=== PATIENT | male | born 1950 | race Hispanic/Latino ===

== ENCOUNTER 2018-03-13 12:33 | Emergency (ER) | payer OTHER ==
[2018-03-13] MEDS ORDERED: predniSONE 20 MG TAB ONE (13:44)
[2018-03-13] MEDS ORDERED: ALBUTEROL 2.5 MG/3 ML NEB SOL ONE (13:44)
--- NOTE | 2018-03-13 13:55 | RAD REPORT ---
EXAM DESCRIPTION: RAD - Chest Pa And Lat (2 Views) - 03/13/2018 1:48 pm CLINICAL HISTORY: Cough;Dyspnea Chest pain. COMPARISON: No comparisons FINDINGS: The lungs are emphysematous but clear. The heart is upper limit of normal in size. No disp laced fractures. Lumbar hardware is present at the thoracolumbar junction. IMPRESSION: Mild COPD.
[2018-03-13] MEDS ORDERED: IPRATROPIUM BROM 0.5MG/2.5ML ONE (15:33)
--- NOTE | 2018-03-13 16:04 | ER ---
Nurse's Notes [facility] Name: Sebastian Alford Age: 67 yrs Sex: Male : 1950 Arrival Date: 03/13/2018 Time: 12:40 Bed 23 Private MD: out of town, doctor Diagnosis: Acute bronchitis Presentation: 03/13 12:49 Presenting complaint: Patient states: i have a cough since Saturday, hard to lay down and hj sleep; reports productive cough; denies fever; took Nyquil and excedrin today;. Transition of care: patient was not received from another setting of care. Onset of symptoms was March 13, 2018. Risk Assessment: Do you want to hurt yourself or someone else? Patient reports no desire to harm self or others. Initial Sepsis Screen: Does the patient meet any 2 criteria? No. Patient's initial sepsis screen is negative. Does the patient have a suspected source of infection? No. Patient's initial sepsis screen is negative. Care prior to arrival: None. 12:49 Method Of Arrival: Ambulatory 12:49 Acuity: HERBERT 4 hj Triage Assessment: 12:54 General: Appears in no apparent distress. uncomfortable, Behavior is calm, cooperative, hj appropriate for age. Pain: Denies pain. Historical: - Allergies: 12:54 No Known Allergies; hj - Home Meds: 12:54 Avodart 0.5 mg oral cap 1 cap once daily [Active]; doxazosin 8 mg oral tab 1 tab once hj daily [Active]; atorvastatin 40 mg oral tab 1 tab once daily [Active]; potassium chloride 20 mEq Oral TbTQ 1 tab once daily [Active]; furosemide 40 mg Oral tab 1 tab 2 times per day [Active]; Benicar 40 mg oral tab 1 tab once daily [Active]; aspirin 81 mg Oral chew 1 tab once daily [Active]; Centrum Silver 400-250 mcg oral chew [Active]; - PMHx: 12:54 Hypertension; Hyperlipidemia; hj - PSHx: 12:54 hip surgery; back; Hernia repair; Cholecystectomy; hj - Immunization history:: Adult Immunizations up to date. - Social history:: Smoking status: Patient/guardian denies using tobacco, Patient/guardian denies using alcohol. - Ebola Screening: : Patient negative for fever greater than or equal to 101.5 degrees Fahrenheit, and additional compatible Ebola Virus Disease symptoms Patient denies exposure to infectious person Patient denies travel to an Ebola-affected area in the 21 days before illness onset. Screenin:54 Abuse screen: Denies threats or abuse. Denies injuries from another. Nutritional hj screening: No deficits noted. Tuberculosis screening: No symptoms or risk factors identified. Fall Risk None identified. Assessment: 13:20 General: Appears distressed, uncomfortable, well groomed, well developed, well tl3 nourished, Behavior is calm, cooperative, appropriate for age. Pain: Denies pain. Neuro: Level of Consciousness is awake, alert, obeys commands, Oriented to person, place, time, situation, Appropriate for age. Cardiovascular: Heart tones S1 S2 present Patient's skin is warm and dry. Respiratory: Airway is patent Respiratory effort is labored, shallow, Respiratory pattern is symmetrical, Breath sounds are diminished bilaterally. GI: No deficits noted. No signs and/or symptoms were reported involving the gastrointestinal system. : No deficits noted. No signs and/or symptoms were reported regarding the genitourinary system. EENT: No deficits noted. No signs and/or symptoms were reported regarding the EENT system. Derm: No deficits noted. No signs and/or symptoms reported regarding the dermatologic system. Musculoskeletal: No deficits noted. No signs and/or symptoms reported regarding the musculoskeletal system. 14:25 Reassessment: pt S/S much improved after first neb. tl3 15:50 Reassessment: Patient and/or family updated on plan of care and expected duration. Pain tl3 level reassessed. Patient is alert, oriented x 3, equal unlabored respirations, skin warm/dry/pink. pt S/S improved, coughing reduced and breathing much easier. Vital Signs: 12:55 BP 136 / 90; Pulse 87; Resp 18; Temp 97.8(TE); Pulse Ox 98% on R/A; Weight 111.13 kg; hj Height 5 ft. 6 in. (167.64 cm); Pain 0/10; 14:24 BP 146 / 80; Pulse 82; Resp 18; Pulse Ox 94% on R/A; tl3 15:50 BP 129 / 78; Pulse 87; Resp 18; Pulse Ox 97% ; tl3 12:55 Body Mass Index 39.54 (111.13 kg, 167.64 cm) hj ED Course: 12:40 Patient arrived in ED. mr 12:40 out of town, doctor is Private Physician. mr 12:51 Triage completed. hj 12:54 Arm band placed on left wrist. hj 12:54 Patient has correct armband on for positive identification. Placed in gown. Bed in low hj position. Call light in reach. Side rails up X 1. 13:06 Suze Patel, RN is Primary Nurse. tl3 13:07 Ramos Hough PA is PHCP. jr8 13:07 Dano Zelaya MD is Attending Physician. jr8 13:48 XRAY Chest Pa And Lat (2 Views) In Process Unspecified. EDMS 14:24 No provider procedures requiring assistance completed. Patient did not have IV access tl3 during this emergency room visit. Administered Medications: 13:52 Drug: Albuterol 2.5 mg Route: Inhalation; tl3 14:05 Drug: predniSONE 60 mg Route: PO; tl3 14:21 Follow up: Response: No adverse reaction tl3 15:57 Follow up: Response: No adverse reaction tl3 14:20 Drug: Albuterol 2.5 mg Route: Inhalation; tl3 15:15 Drug: Albuterol 2.5 mg Route: Inhalation; tl3 15:58 Follow up: Response: Marked relief of symptoms tl3 15:15 Drug: AtroVENT Aerosol 0.5 mg Route: Inhalation; tl3 15:57 Follow up: Response: No adverse reaction; Marked relief of symptoms tl3 Outcome: 16:04 Discharge ordered by . jr8 16:30 Discharged to home ambulatory. tl3 16:30 Condition: improved 16:30 Discharge instructions given to patient, Instructed on discharge instructions, follow up and referral plans. medication usage, instructed pt on proper inhaler use, stressed follow up with PCP 16:32 Patient left the ED. tl3 Signatures: Dispatcher [employer] EDAL Margaret Machado mr Ramos Hough PA PA jr8 Rishi Lovelace RN RN Suze Patel RN RN tl3
--- NOTE | 2018-03-13 16:05 | EDPHYS ---
Physician Documentation [facility] Name: Sebastian Alford Age: 67 yrs Sex: Male : 1950 Arrival Date: 03/13/2018 Time: 12:40 Bed 23 Private MD: out of town, doctor ED Physician Dano Zelaya HPI: 03/13 14:04 This 67 yrs old Male presents to ER via Ambulatory with complaints of Cough. jr8 14:04 The patient or guardian reports cough, that is intermittent, described as moderate, jr8 with productive sputum, that is green, difficulty breathing. Onset: The symptoms/episode began/occurred gradually, 4 day(s) ago. Severity of symptoms: At their worst the symptoms were moderate, in the emergency department the symptoms are unchanged. Modifying factors: The symptoms are alleviated by nothing, the symptoms are aggravated by nothing. Associated signs and symptoms: The patient has no apparent associated signs or symptoms. The patient has not experienced similar symptoms in the past. The patient has not recently seen a physician. Historical: - Allergies: 12:54 No Known Allergies; hj - Home Meds: 12:54 Avodart 0.5 mg oral cap 1 cap once daily [Active]; doxazosin 8 mg oral tab 1 tab once hj daily [Active]; atorvastatin 40 mg oral tab 1 tab once daily [Active]; potassium chloride 20 mEq Oral TbTQ 1 tab once daily [Active]; furosemide 40 mg Oral tab 1 tab 2 times per day [Active]; Benicar 40 mg oral tab 1 tab once daily [Active]; aspirin 81 mg Oral chew 1 tab once daily [Active]; Centrum Silver 400-250 mcg oral chew [Active]; - PMHx: 12:54 Hypertension; Hyperlipidemia; hj - PSHx: 12:54 hip surgery; back; Hernia repair; Cholecystectomy; hj - Immunization history:: Adult Immunizations up to date. - Social history:: Smoking status: Patient/guardian denies using tobacco, Patient/guardian denies using alcohol. - Ebola Screening: : Patient negative for fever greater than or equal to 101.5 degrees Fahrenheit, and additional compatible Ebola Virus Disease symptoms Patient denies exposure to infectious person Patient denies travel to an Ebola-affected area in the 21 days before illness onset. ROS: 14:04 Eyes: Negative for injury, pain, redness, and discharge, ENT: Negative for injury, jr8 pain, and discharge, Neck: Negative for injury, pain, and swelling, Cardiovascular: Negative for chest pain, palpitations, and edema, Abdomen/GI: Negative for abdominal pain, nausea, vomiting, diarrhea, and constipation, Back: Negative for injury and pain, MS/Extremity: Negative for injury and deformity, Skin: Negative for injury, rash, and discoloration, Neuro: Negative for headache, weakness, numbness, tingling, and seizure. 14:04 Respiratory: Positive for cough, shortness of breath, wheezing. Exam: 14:04 Eyes: Pupils equal round and reactive to light, extra-ocular motions intact. Lids and jr8 lashes normal. Conjunctiva and sclera are non-icteric and not injected. Cornea within normal limits. Periorbital areas with no swelling, redness, or edema. ENT: Nares patent. No nasal discharge, no septal abnormalities noted. Tympanic membranes are normal and external auditory canals are clear. Oropharynx with no redness, swelling, or masses, exudates, or evidence of obstruction, uvula midline. Mucous membranes moist. Neck: Trachea midline, no thyromegaly or masses palpated, and no cervical lymphadenopathy. Supple, full range of motion without nuchal rigidity, or vertebral point tenderness. No Meningismus. Cardiovascular: Regular rate and rhythm with a normal S1 and S2. No gallops, murmurs, or rubs. Normal PMI, no JVD. No pulse deficits. Abdomen/GI: Soft, non-tender, with normal bowel sounds. No distension or tympany. No guarding or rebound. No evidence of tenderness throughout. Back: No spinal tenderness. No costovertebral tenderness. Full range of motion. Skin: Warm, dry with normal turgor. Normal color with no rashes, no lesions, and no evidence of cellulitis. MS/ Extremity: Pulses equal, no cyanosis. Neurovascular intact. Full, normal range of motion. Neuro: Awake and alert, GCS 15, oriented to person, place, time, and situation. Cranial nerves II-XII grossly intact. Motor strength 5/5 in all extremities. Sensory grossly intact. Cerebellar exam normal. Normal gait. 14:04 Respiratory: the patient does not display signs of respiratory distress, Respirations: normal, symetrical, no use of accessory muscles, no grunting, no evidence of nasal flaring, no prolonged exhalations, no pursed lip breathing, no retractions, no shallow respirations, no splinting, no tachypnea, Breath sounds: wheezing: expiratory that is mild, is heard diffusely. Vital Signs: 12:55 BP 136 / 90; Pulse 87; Resp 18; Temp 97.8(TE); Pulse Ox 98% on R/A; Weight 111.13 kg; hj Height 5 ft. 6 in. (167.64 cm); Pain 0/10; 14:24 BP 146 / 80; Pulse 82; Resp 18; Pulse Ox 94% on R/A; tl3 15:50 BP 129 / 78; Pulse 87; Resp 18; Pulse Ox 97% ; tl3 12:55 Body Mass Index 39.54 (111.13 kg, 167.64 cm) hj MDM: 13:07 Patient medically screened. jr8 14:04 Data reviewed: vital signs, nurses notes, radiologic studies, plain films. Data jr8 interpreted: Pulse oximetry: on room air is 98 %. Interpretation: normal. Counseling: I had a detailed discussion with the patient and/or guardian regarding: the historical points, exam findings, and any diagnostic results supporting the discharge/admit diagnosis, radiology results, the need for outpatient follow up, a family practitioner, to return to the emergency department if symptoms worsen or persist or if there are any questions or concerns that arise at home. Response to treatment: the patient's symptoms have markedly improved after treatment. 03/13 13:24 Order name: XRAY Chest Pa And Lat (2 Views); Complete Time: 14:01 jr8 Administered Medications: 13:52 Drug: Albuterol 2.5 mg Route: Inhalation; tl3 14:05 Drug: predniSONE 60 mg Route: PO; tl3 14:21 Follow up: Response: No adverse reaction tl3 15:57 Follow up: Response: No adverse reaction tl3 14:20 Drug: Albuterol 2.5 mg Route: Inhalation; tl3 15:15 Drug: Albuterol 2.5 mg Route: Inhalation; tl3 15:58 Follow up: Response: Marked relief of symptoms tl3 15:15 Drug: AtroVENT Aerosol 0.5 mg Route: Inhalation; tl3 15:57 Follow up: Response: No adverse reaction; Marked relief of symptoms tl3 Disposition: 18:39 Co-signature as Attending Physician, Dano Zelaya MD I agree with the assessment and kdr plan of care. Disposition: 03/13/18 16:04 Discharged to Home. Impression: Acute bronchitis. - Condition is Stable. - Discharge Instructions: Acute Bronchitis, Adult. - Prescriptions for Prednisone 20 mg Oral Tablet - take 3 tablet by ORAL route once daily for 5 days; 15 tablet. Albuterol Sulfate 90 mcg/actuation Inhalation - inhale 2 puff by INHALATION route every 4 hours; 1 Inhaler. Guaifenesin AC 10- 100 mg/5 mL Oral Liquid - take 10 milliliter by ORAL route every 4 hours As needed; 240 milliliter. - Medication Reconciliation Form, Thank You Letter, Antibiotic Education, Prescription Opioid Use form. - Follow up: Private Physician; When: 2 - 3 days; Reason: Recheck today's complaints, Continuance of care, Re-evaluation by your physician. - Problem is new. - Symptoms have improved. Signatures: Dispatcher [employer] EDMS Dano Zelaya MD MD [facility] Ramos Hough PA PA jr8 Rishi Lovelace RN RN Suze Patel RN RN tl3 Corrections: (The following items were deleted from the chart) 16:32 16:04 03/13/2018 16:04 Discharged to Home. Impression: Acute bronchitis. Condition is tl3 Stable. Forms are Medication Reconciliation Form, Thank You Letter, Antibiotic Education, Prescription Opioid Use. Follow up: Private Physician; When: 2 - 3 days; Reason: Recheck today's complaints, Continuance of care, Re-evaluation by your physician. Problem is new. Symptoms have improved. jr8
== END 2018-03-13 16:32 | disposition home or self-care (01) ==
LOC: ER 12:33
DX: J20.9 Acute bronchitis, unspecified (principal); I10 Essential (primary) hypertension; E78.5 Hyperlipidemia, unspecified; Z79.82 Long term (current) use of aspirin
CPT/HCPCS: 71046; 99284; J7512

== ENCOUNTER 2018-03-21 19:16 | Inpatient (IN) | payer OTHER ==
[2018-03-21] MEDS ORDERED: IPRATROPIUM BROM 0.5MG/2.5ML ONE (19:48)
[2018-03-21] MEDS ORDERED: ALBUTEROL 2.5 MG/3 ML NEB SOL ONE (19:48)
--- NOTE | 2018-03-21 20:12 | RAD REPORT ---
EXAM DESCRIPTION: RAD - Chest Single View - 03/21/2018 8:05 pm CLINICAL HISTORY: DYSPNEA Chest pain. COMPARISON: Chest Pa And Lat (2 Views) dated 03/13/2018 FINDINGS: Portable technique limits examination quality. Mild interstitial pulmonary edema is seen. The heart is mildly prominent. No displaced fractures. IMPRESSION: Mild CHF versus volume overload pattern.
[2018-03-21] MEDS ORDERED: AZITHROMYCIN 500 MG/250 ML BAG ONE (20:27)
[2018-03-21] MEDS ORDERED: NA CHLORIDE 0.9% 1,000 ML ONE (20:27)
[2018-03-21] MEDS ORDERED: METHYLPREDNISOLONE 125 MG INJ ONE (20:27)
[2018-03-21] MEDS ORDERED: CEFTRIAXONE 1000 MG/VIAL ONE (20:27)
[2018-03-21] MEDS ORDERED: NA CHLORIDE 0.9% 100 ML IV ONE (20:28)
[2018-03-21 21:30] LABS: Absolute Lymphocytes (CBC) 0.6 K/uL (0.7-4.9); Absolute Monocytes 0.5 K/uL (0.1-1.3); Basophils % 0.2 % (0-1.3); Eosinophils % 2.7 % (0-4.4); Hematocrit 39.5 % (39.6-49.0); Lymphocytes % 8.6 % (15.3-44.8); MPV 8.5 fL (7.6-11.3); Monocytes % 6.5 % (3.3-12.3); RBC Red Blood Cell Count 4.22 M/uL (4.33-5.43)
[2018-03-21 21:31] LABS: Protime INR 1.05
--- NOTE | 2018-03-21 21:39 | ER ---
Nurse's Notes [facility] Name: Sebastian Alford Age: 67 yrs Sex: Male : 1950 Arrival Date: 03/21/2018 Time: 19:20 Bed 24 Private MD: Diagnosis: Dyspnea;Cardiomegaly;Unspecified combined systolic (congestive) and diastolic (congestive) heart failure;Obesity, unspecified;Essential (primary) hypertension;Cough;Acute upper respiratory infection, unspecified Presentation: 03/21 19:28 Presenting complaint: Patient states: I have been having a cough and SOB for the last 2 la1 weeks, I was here a week ago and put on steroids and breathing treatments but I am just getting worse. Transition of care: patient was not received from another setting of care. Onset of symptoms was March 21, 2018. Risk Assessment: Do you want to hurt yourself or someone else? Patient reports no desire to harm self or others. Initial Sepsis Screen: Does the patient meet any 2 criteria? No. Patient's initial sepsis screen is negative. Does the patient have a suspected source of infection? No. Patient's initial sepsis screen is negative. Care prior to arrival: None. 19:28 Method Of Arrival: Ambulatory la1 19:28 Acuity: HERBERT 3 la1 Triage Assessment: 22:59 Respiratory: Reports Onset: The symptoms/episode began/occurred the last week, the tl3 patient has severe shortness of breath. Historical: - Allergies: 19:30 No Known Allergies; la1 - Home Meds: 19:30 aspirin 81 mg Oral chew 1 tab once daily [Active]; atorvastatin 40 mg Oral tab 1 tab la1 once daily [Active]; Avodart 0.5 mg Oral cap 1 cap once daily [Active]; Benicar 40 mg Oral tab 1 tab once daily [Active]; Centrum Silver 400-250 mcg Oral chew [Active]; doxazosin 8 mg Oral tab 1 tab once daily [Active]; furosemide 40 mg Oral tab 1 tab 2 times per day [Active]; potassium chloride 10 mEq oral TbTQ [Active]; 19:34 Avodart 0.5 mg oral cap 1 cap once daily [Active]; tl3 - PMHx: 19:30 Hyperlipidemia; Hypertension; la1 - PSHx: 19:34 hip surgery; Hernia repair; Cholecystectomy; tl3 - Immunization history:: Adult Immunizations up to date, Adult Immunizations unknown. - Social history:: Smoking status: Patient/guardian denies using tobacco, Smoking status: unknown. - Ebola Screening: : No symptoms or risks identified at this time. - Family history:: not pertinent. Screenin:36 Abuse screen: Denies threats or abuse. Nutritional screening: No deficits noted. tl3 Tuberculosis screening: No symptoms or risk factors identified. Fall Risk None identified. Assessment: 19:30 General: Appears distressed, uncomfortable, well groomed, well developed, well tl3 nourished, Behavior is calm, cooperative, appropriate for age. General: pt was seen here a few days ago and s/s are getting worse. Pain: Complains of pain in sore throat with cough. Neuro: Level of Consciousness is awake, alert, obeys commands, Oriented to person, place, time, situation, Appropriate for age. Cardiovascular: Heart tones S1 S2 present Patient's skin is warm and dry. Rhythm is regular. Respiratory: Airway is patent Respiratory effort is even, unlabored, Respiratory pattern is regular, symmetrical, Breath sounds with crackles bilaterally. in left lower lobe, right lower lobe, left posterior lower lobe and right posterior lower lobe Breath sounds with rhonchi bilaterally. in left lower lobe, right lower lobe, left posterior lower lobe and right posterior lower lobe. GI: No deficits noted. No signs and/or symptoms were reported involving the gastrointestinal system. : No deficits noted. No signs and/or symptoms were reported regarding the genitourinary system. EENT: No deficits noted. No signs and/or symptoms were reported regarding the EENT system. Derm: No deficits noted. No signs and/or symptoms reported regarding the dermatologic system. Musculoskeletal: No deficits noted. No signs and/or symptoms reported regarding the musculoskeletal system. 20:45 Reassessment: No changes from previously documented assessment. Patient and/or family tl3 updated on plan of care and expected duration. Pain level reassessed. Patient is alert, oriented x 3, equal unlabored respirations, skin warm/dry/pink. 22:00 Reassessment: Patient appears in no apparent distress at this time. No changes from tl3 previously documented assessment. Patient and/or family updated on plan of care and expected duration. Pain level reassessed. Patient is alert, oriented x 3, equal unlabored respirations, skin warm/dry/pink. 23:06 Reassessment: Patient appears in no apparent distress at this time. No changes from tl3 previously documented assessment. Patient and/or family updated on plan of care and expected duration. Pain level reassessed. Patient is alert, oriented x 3, equal unlabored respirations, skin warm/dry/pink. Vital Signs: 19:30 Pulse 95; Resp 26; Temp 98.1(O); Pulse Ox 94% on R/A; Weight 111.13 kg; Height 5 ft. 6 la1 in. (167.64 cm); 19:34 BP 180 / 80; Pulse 96; Resp 26; Pulse Ox 97% on R/A; tl3 20:45 BP 130 / 83; Pulse 84; Resp 18; Pulse Ox 99% on R/A; tl3 23:06 BP 159 / 95; Pulse 89; Resp 18; Pulse Ox 98% on R/A; tl3 19:30 Body Mass Index 39.54 (111.13 kg, 167.64 cm) la1 ED Course: 19:20 Patient arrived in ED. am2 19:29 Triage completed. la1 19:30 Suze Patel, RN is Primary Nurse. tl3 19:30 Catracho Harley MD is Attending Physician. christina 19:31 Arm band placed on left wrist. la1 19:36 Patient has correct armband on for positive identification. Bed in low position. Call tl3 light in reach. Side rails up X 1. Adult w/ patient. monitor and storage bin tender on. Pulse ox on. NIBP on. 19:36 No provider procedures requiring assistance completed. tl3 20:03 Chest Single View XRAY In Process Unspecified. EDMS 21:15 Inserted saline lock: 20 gauge in right hand, using aseptic technique. tl3 21:37 Janneth Block MD is Hospitalizing Provider. christina 23:49 Patient admitted, IV remains in place. tl3 Administered Medications: 19:46 Drug: Albuterol - atroVENT (3:1) (2.5 mg - 0.5 mg) 3 ml Route: Nebulizer; tl3 20:46 Follow up: Response: No adverse reaction; Marked relief of symptoms mg2 20:31 Not Given (Duplicate Order): NS 0.9% 1000 ml IV at 125 ml/hr continuous christina 21:25 Drug: Rocephin 2 grams Route: IV; Rate: per protocol; Site: right hand; mg2 23:11 Follow up: Response: No adverse reaction; IV Status: Completed infusion mg2 21:25 Drug: Zithromax 500 mg Route: IVPB; Infused Over: 1 hrs; Site: right hand; mg2 23:11 Follow up: Response: No adverse reaction; IV Status: Completed infusion mg2 21:41 Drug: SOLU-Medrol 125 mg Route: IVP; Site: right hand; mg2 23:11 Follow up: Response: No adverse reaction; Marked relief of symptoms mg2 21:54 Drug: Lasix 40 mg Route: IVP; Site: right hand; mg2 23:10 Follow up: Response: No adverse reaction; Marked relief of symptoms mg2 22:57 Drug: Lopressor (metoprolol TARTRATE) 50 mg Route: PO; tl3 22:58 Follow up: Response: No adverse reaction tl3 22:57 Drug: Aspirin 162 mg Route: PO; tl3 22:58 Follow up: Response: No adverse reaction tl3 22:57 Drug: Pepcid 20 mg Route: IVP; Infused Over: 2 mins; Site: right wrist; tl3 22:58 Follow up: Response: No adverse reaction tl3 22:58 Drug: Lovenox 100 mg Route: Sub-Q; Site: abdomen; tl3 22:59 Follow up: Response: No adverse reaction tl3 Outcome: 21:39 Decision to Hospitalize by Provider. christina 23:49 Admitted to Med/surg tl3 23:49 Admitted to Med/surg Report called to BALTAZAR Orr 23:49 Condition: stable 23:49 Instructed on the need for admit. 03/22 00:35 Patient left the ED. tl3 Signatures: Dispatcher [employer] EDCatracho Jimenez MD MD cha Attema, Lee RN RN la1 Caren Luna Tammy RN RN tl3 Zackary Herrera RN RN mg2
--- NOTE | 2018-03-21 21:39 | EDPHYS ---
Physician Documentation [facility] Name: Sebastian Alford Age: 67 yrs Sex: Male : 1950 Arrival Date: 03/21/2018 Time: 19:20 Bed 24 Private MD: ED Physician Catracho Harley HPI: 03/21 20:06 This 67 yrs old Male presents to ER via Ambulatory with complaints of christina Breathing Difficulty, Cough. 20:06 The patient has shortness of breath at rest, with light activity. Onset: The christina symptoms/episode began/occurred 3 day(s) ago. Duration: The symptoms are continuous, and are steadily getting worse. The patient's shortness of breath is aggravated by nothing, is alleviated by nothing. Associated signs and symptoms: The patient has no apparent associated signs or symptoms. Severity of symptoms: At their worst the symptoms were mild moderate in the emergency department the symptoms are unchanged. The patient has not experienced similar symptoms in the past. Historical: - Allergies: 19:30 No Known Allergies; la1 - Home Meds: 19:30 aspirin 81 mg Oral chew 1 tab once daily [Active]; atorvastatin 40 mg Oral tab 1 tab la1 once daily [Active]; Avodart 0.5 mg Oral cap 1 cap once daily [Active]; Benicar 40 mg Oral tab 1 tab once daily [Active]; Centrum Silver 400-250 mcg Oral chew [Active]; doxazosin 8 mg Oral tab 1 tab once daily [Active]; furosemide 40 mg Oral tab 1 tab 2 times per day [Active]; potassium chloride 10 mEq oral TbTQ [Active]; 19:34 Avodart 0.5 mg oral cap 1 cap once daily [Active]; tl3 - PMHx: 19:30 Hyperlipidemia; Hypertension; la1 - PSHx: 19:34 hip surgery; Hernia repair; Cholecystectomy; tl3 - Immunization history:: Adult Immunizations up to date, Adult Immunizations unknown. - Social history:: Smoking status: Patient/guardian denies using tobacco, Smoking status: unknown. - Ebola Screening: : No symptoms or risks identified at this time. - Family history:: not pertinent. ROS: 20:06 Eyes: Negative for injury, pain, redness, and discharge, ENT: Negative for injury, christina pain, and discharge, Neck: Negative for injury, pain, and swelling, Cardiovascular: Negative for chest pain, palpitations, and edema, Abdomen/GI: Negative for abdominal pain, nausea, vomiting, diarrhea, and constipation, Back: Negative for injury and pain, : Negative for injury, bleeding, discharge, and swelling, MS/Extremity: Negative for injury and deformity, Skin: Negative for injury, rash, and discoloration, Neuro: Negative for headache, weakness, numbness, tingling, and seizure, Psych: Negative for depression, anxiety, suicide ideation, homicidal ideation, and hallucinations, Allergy/Immunology: Negative for hives, rash, and allergies, Endocrine: Negative for neck swelling, polydipsia, polyuria, polyphagia, and marked weight changes, Hematologic/Lymphatic: Negative for swollen nodes, abnormal bleeding, and unusual bruising. 20:06 Constitutional: Positive for chills, fatigue. 20:06 Respiratory: Positive for cough, with no reported sputum. Exam: 20:06 Head/Face: Normocephalic, atraumatic. Eyes: Pupils equal round and reactive to light, christina extra-ocular motions intact. Lids and lashes normal. Conjunctiva and sclera are non-icteric and not injected. Cornea within normal limits. Periorbital areas with no swelling, redness, or edema. ENT: Nares patent. No nasal discharge, no septal abnormalities noted. Tympanic membranes are normal and external auditory canals are clear. Oropharynx with no redness, swelling, or masses, exudates, or evidence of obstruction, uvula midline. Mucous membranes moist. Neck: Trachea midline, no thyromegaly or masses palpated, and no cervical lymphadenopathy. Supple, full range of motion without nuchal rigidity, or vertebral point tenderness. No Meningismus. Chest/axilla: Normal chest wall appearance and motion. Nontender with no deformity. No lesions are appreciated. Cardiovascular: Regular rate and rhythm with a normal S1 and S2. No gallops, murmurs, or rubs. Normal PMI, no JVD. No pulse deficits. Abdomen/GI: Soft, non-tender, with normal bowel sounds. No distension or tympany. No guarding or rebound. No evidence of tenderness throughout. Back: No spinal tenderness. No costovertebral tenderness. Full range of motion. Male : Normal genitalia with no discharge or lesions. Skin: Warm, dry with normal turgor. Normal color with no rashes, no lesions, and no evidence of cellulitis. MS/ Extremity: Pulses equal, no cyanosis. Neurovascular intact. Full, normal range of motion. Neuro: Awake and alert, GCS 15, oriented to person, place, time, and situation. Cranial nerves II-XII grossly intact. Motor strength 5/5 in all extremities. Sensory grossly intact. Cerebellar exam normal. Normal gait. Psych: Awake, alert, with orientation to person, place and time. Behavior, mood, and affect are within normal limits. 20:06 Constitutional: The patient appears anxious. 22:14 Musculoskeletal/extremity: DVT Exam: No signs of deep vein thrombosis. no pain, no christina swelling, no tenderness, negative Homans' sign noted on exam, no appreciated bluish discoloration, no erythema, no increased warmth. Vital Signs: 19:30 Pulse 95; Resp 26; Temp 98.1(O); Pulse Ox 94% on R/A; Weight 111.13 kg; Height 5 ft. 6 la1 in. (167.64 cm); 19:34 BP 180 / 80; Pulse 96; Resp 26; Pulse Ox 97% on R/A; tl3 20:45 BP 130 / 83; Pulse 84; Resp 18; Pulse Ox 99% on R/A; tl3 23:06 BP 159 / 95; Pulse 89; Resp 18; Pulse Ox 98% on R/A; tl3 19:30 Body Mass Index 39.54 (111.13 kg, 167.64 cm) la1 MDM: 19:30 Patient medically screened. [facility] 20:11 Data reviewed: vital signs, nurses notes, lab test result(s), EKG, radiologic studies, [facility] plain films. 03/21 20:05 Order name: Basic Metabolic Panel; Complete Time: 22:11 [facility] 03/21 20:05 Order name: CBC with Diff; Complete Time: 21:44 [facility] 03/21 20:05 Order name: LFT's; Complete Time: 22:11 [facility] 03/21 20:05 Order name: Magnesium; Complete Time: 22:11 [facility] 03/21 20:05 Order name: NT PRO-BNP; Complete Time: 22:11 [facility] 03/21 20:05 Order name: PT-INR; Complete Time: 21:44 [facility] 03/21 19:42 Order name: Chest Single View XRAY; Complete Time: 20:31 tl3 03/21 20:05 Order name: Troponin (emerg Dept Use Only); Complete Time: 22:11 [facility] 03/21 20:05 Order name: Blood Culture Adult (2) [facility] 03/21 20:05 Order name: Procalcitonin [facility] 03/21 20:14 Order name: Influenza Screen (a \T\ B); Complete Time: 21:44 [facility] 03/21 22:08 Order name: Echo with Doppler EDMS 03/21 20:05 Order name: EKG; Complete Time: 20:06 [facility] 03/21 20:05 Order name: Cardiac monitoring; Complete Time: 20:11 [facility] 03/21 20:05 Order name: EKG - Nurse/Tech; Complete Time: 20:11 [facility] 03/21 20:05 Order name: IV Saline Lock; Complete Time: 23:51 [facility] 03/21 20:05 Order name: Labs collected and sent; Complete Time: 23:51 [facility] 03/21 20:05 Order name: O2 Per Protocol; Complete Time: 20:11 [facility] 03/21 20:05 Order name: O2 Sat Monitoring; Complete Time: 20:11 [facility] 03/21 22:08 Order name: Heart Healthy EDMS Administered Medications: 19:46 Drug: Albuterol - atroVENT (3:1) (2.5 mg - 0.5 mg) 3 ml Route: Nebulizer; tl3 20:46 Follow up: Response: No adverse reaction; Marked relief of symptoms mg2 20:31 Not Given (Duplicate Order): NS 0.9% 1000 ml IV at 125 ml/hr continuous christina 21:25 Drug: Rocephin 2 grams Route: IV; Rate: per protocol; Site: right hand; mg2 23:11 Follow up: Response: No adverse reaction; IV Status: Completed infusion mg2 21:25 Drug: Zithromax 500 mg Route: IVPB; Infused Over: 1 hrs; Site: right hand; mg2 23:11 Follow up: Response: No adverse reaction; IV Status: Completed infusion mg2 21:41 Drug: SOLU-Medrol 125 mg Route: IVP; Site: right hand; mg2 23:11 Follow up: Response: No adverse reaction; Marked relief of symptoms mg2 21:54 Drug: Lasix 40 mg Route: IVP; Site: right hand; mg2 23:10 Follow up: Response: No adverse reaction; Marked relief of symptoms mg2 22:57 Drug: Lopressor (metoprolol TARTRATE) 50 mg Route: PO; tl3 22:58 Follow up: Response: No adverse reaction tl3 22:57 Drug: Aspirin 162 mg Route: PO; tl3 22:58 Follow up: Response: No adverse reaction tl3 22:57 Drug: Pepcid 20 mg Route: IVP; Infused Over: 2 mins; Site: right wrist; tl3 22:58 Follow up: Response: No adverse reaction tl3 22:58 Drug: Lovenox 100 mg Route: Sub-Q; Site: abdomen; tl3 22:59 Follow up: Response: No adverse reaction tl3 Disposition: 03/21/18 21:39 Hospitalization ordered by Janneth Block for Observation. Preliminary diagnosis are Dyspnea, Cardiomegaly, Unspecified combined systolic (congestive) and diastolic (congestive) heart failure, Obesity, unspecified, Essential (primary) hypertension, Cough, Acute upper respiratory infection, unspecified. - Bed requested for Telemetry/MedSurg (observation). - Status is Observation. tl3 - Condition is Fair. - Problem is new. - Symptoms have improved. UTI on Admission? No Signatures: Dispatcher [employer] EDMS Catracho Harley MD MD cha Attema, Lee RN RN la1 Yolanda Whittington RN RN cg Suze Patel RN RN tl3 Zackary Herrera RN RN mg2 Corrections: (The following items were deleted from the chart) 22:13 21:39 Hospitalization Ordered by Janneth Block MD for Observation. Preliminary christina diagnosis is Dyspnea; Cardiomegaly; Unspecified combined systolic (congestive) and diastolic (congestive) heart failure; Obesity, unspecified; Essential (primary) hypertension; Cough. Bed requested for Telemetry/MedSurg (observation). Status is Observation. Condition is Fair. Problem is new. Symptoms have improved. UTI on Admission? No. christina 22:31 22:13 03/21/2018 21:39 Hospitalization Ordered by Janneth Block MD for Observation. Preliminary diagnosis is Dyspnea; Cardiomegaly; Unspecified combined systolic (congestive) and diastolic (congestive) heart failure; Obesity, unspecified; Essential (primary) hypertension; Cough; Acute upper respiratory infection, unspecified. Bed requested for Telemetry/MedSurg (observation). Status is Observation. Condition is Fair. Problem is new. Symptoms have improved. UTI on Admission? No. christina 03/22 00:35 03/21 22:31 03/21/2018 21:39 Hospitalization Ordered by Janneth Block MD for tl3 Observation. Preliminary diagnosis is Dyspnea; Cardiomegaly; Unspecified combined systolic (congestive) and diastolic (congestive) heart failure; Obesity, unspecified; Essential (primary) hypertension; Cough; Acute upper respiratory infection, unspecified. Bed requested for Telemetry/MedSurg (observation). Status is Observation. Condition is Fair. Problem is new. Symptoms have improved. UTI on Admission? No. cg
[2018-03-21] MEDS ORDERED: FUROSEMIDE 40 MG/4 ML VIAL ONE (21:56)
[2018-03-21 22:04] LABS: Albumin 3.3 g/dL (3.4-5.0); Bilirubin Direct 0.3 mg/dL (0-0.2); Bilirubin Total 1.5 mg/dL (0.2-1.0); Magnesium 2.2 mg/dL (1.8-2.4); Potassium 4.4 mmol/L (3.5-5.1); Protein, Total 6.7 g/dL (6.4-8.2); Troponin (Emerg Dept Use Only) 0.03 ng/mL (0.0-0.045)
[2018-03-21] MEDS ORDERED: MAGNESIUM HYDROXIDE 8% 30 ML PO PRN (22:04)
[2018-03-21] MEDS ORDERED: ONDANSETRON 4 MG/2 ML VIAL IV PRN (22:04)
[2018-03-21] MEDS ORDERED: ACETAMINOPHEN 500 MG TAB PO PRN (22:04)
[2018-03-21] MEDS ORDERED: FAMOTIDINE 20 MG/2 ML VIAL IV ONE (22:59)
[2018-03-21] MEDS ORDERED: METOPROLOL TAR 50 MG TAB ONE (22:59)
[2018-03-21] MEDS ORDERED: ENOXAPARIN 100 MG/ML SYR SQ ONE (22:59)
[2018-03-22] MEDS ORDERED: GUAIFENESIN/CODEINE 5ML UCUP PO PRN ×2 (03:23→17:18)
[2018-03-22 05:22] LABS: Absolute Lymphocytes (CBC) 0.8 K/uL (0.7-4.9); Absolute Monocytes 0.5 K/uL (0.1-1.3); Absolute Neutrophil 6.2 K/uL (1.8-8.0); Basophils % 0.3 % (0-1.3); Eosinophils % 2.1 % (0-4.4); Hematocrit 37.6 % (39.6-49.0); Lymphocytes % 10.5 % (15.3-44.8); MPV 8.5 fL (7.6-11.3); Monocytes % 6.6 % (3.3-12.3); RBC Red Blood Cell Count 4.06 M/uL (4.33-5.43)
[2018-03-22] MEDS ORDERED: GUAIFENESIN/CODEINE 5ML UCUP ONE (05:40)
[2018-03-22 05:44] LABS: Albumin 3.3 g/dL (3.4-5.0); Bilirubin Total 1.3 mg/dL (0.2-1.0); Magnesium 2.2 mg/dL (1.8-2.4); Phosphorus 3.1 mg/dL (2.5-4.9); Potassium 3.7 mmol/L (3.5-5.1); Protein, Total 6.4 g/dL (6.4-8.2)
[2018-03-22] MEDS ORDERED: POTASSIUM CL SA 10 MEQ TAB PO ONE ×3 (06:32→21:51)
[2018-03-22 06:49] LABS: Urine Appearance CLEAR; Urine Bilirubin NEGATIVE (NEG); Urine Blood NEGATIVE (NEG); Urine Color YELLOW; Urine Glucose NEGATIVE (NEG); Urine Protein TRACE (NEG); Urine Specific Gravity 1.015 (1.005-1.030)
[2018-03-22 07:01] LABS: Urine Microscopic Reflex ORDER UMIC
[2018-03-22] MEDS: IPRATROPIUM BROM 0.5MG/2.5ML NEB PRN ×2 (07:57→13:47)
[2018-03-22] MEDS: ALBUTEROL 2.5 MG/3 ML NEB SOL NEB PRN ×2 (07:57→13:47)
[2018-03-22 08:09] LABS: Urine Bacteria NONE SEEN /HPF (NONE SEEN); Urine Culture Reflex Order NOT NEEDED; Urine RBC NONE SEEN /HPF (NONE SEEN)
[2018-03-22] MEDS: FUROSEMIDE 40 MG/4 ML VIAL IV SCH (08:44)
[2018-03-22] MEDS: CLOPIDOGREL 75 MG TABLET PO SCH (08:44)
[2018-03-22] MEDS: ENOXAPARIN 40 MG/0.4 ML SQ SCH (08:46)
[2018-03-22] MEDS ORDERED: ASPIRIN EC 81 MG TAB PO SCH (09:00)
--- NOTE | 2018-03-22 09:09 | P.HP ---
Certification for Inpatient Patient admitted to: Inpatient With expected LOS: >2 Midnights Patient will require the following post-hospital care: None Practitioner: I am a practitioner with admitting privileges, knowledge of patient current condition, hospital course, and medical plan of care. Services: Services provided to patient in accordance with Admission requirements found in Title 42 Section 412.3 of the Code of Federal Regulations Patient History Date of Service: 03/21/18 Reason for admission: Pneumoniae History of Present Illness: Patient is a 67-year-old gentleman who came to the hospital after being treated for a bronchitis. Patient has been seen about a week ago at an urgent care. He was not given antibiotics. He was given inhalers and cough medication. However, he was not feeling any better. He came into the emergency room and his workup revealed that he had perihilar infiltrates or edema. His BMP was not significantly elevated however. He does have a significant cough or it appears that he may have had exposure to pertussis. Decision was made to admit the patient to the hospital for further evaluation. Allergies No Known Allergies Allergy (Verified 03/22/18 00:38) Home Medications: Aspirin 1 tab PO BID 03/22/18 Atorvastatin Calcium 1 tab PO BEDTIME 03/22/18 Doxazosin [Cardura*] 8 mg PO DAILY 03/22/18 Dutasteride [Avodart*] 1 tab PO BEDTIME 03/22/18 Furosemide [Lasix*] 1 tab PO BID 03/22/18 Multivit-Min/FA/Lycopen/Lutein [Centrum Silver Men Tablet] 1 tab PO BEDTIME Olmesartan Medoxomil [Benicar] 1 tab PO DAILY 03/22/18 Potassium Oral Tab [Klor-Con 10 mEq Tab*] 1 tab PO BEDTIME 03/22/18 - Past Medical/Surgical History Has patient received pneumonia vaccine in the past: Yes Diabetic: No -: HTN -: BPH -: Bilateral lower extremity edema -: Cholecystectomy -: 2 hip replacements -: back sx -: disc placement on the back. -: vasectomy -: Inguinal herniorrhaphy - Family History parents Medical History: Hypertension, Other (see notes) Notes: diabetes - Social History Smoking Status: Never smoker Alcohol use: No Caffeine use: Yes Place of Residence: Home Review of Systems 10-point ROS is otherwise unremarkable Physical Examination - Vital Signs Temperature: 98.0 F Blood Pressure: 167/90 Pulse: 83 Respirations: 20 Pulse Ox (%): 91 - Physical Exam General: Alert, In no apparent distress, Oriented x3 HEENT: Atraumatic, PERRLA, Mucous membr. moist/pink, EOMI, Sclerae nonicteric Neck: Supple, 2+ carotid pulse no bruit, No LAD, Without JVD or thyroid abnormality Respiratory: Diminished, Expiratory wheezes Cardiovascular: Regular rate/rhythm, Normal S1 S2, No murmurs Gastrointestinal: Normal bowel sounds, Soft and benign, Non-distended, No tenderness Musculoskeletal: No clubbing, No swelling, No tenderness Integumentary: No rashes Neurological: Normal gait, Normal speech, Normal strength at 5/5 x4 extr, Normal tone, Sensation intact, Cranial nerves 3-12 intact, Normal affect Lymphatics: No axilla or inguinal lymphadenopathy - Studies Laboratory Data (last 24 hrs) 03/21/18 20:45: PT 12.4, INR 1.05 03/21/18 20:45: WBC 7.3, Hgb 13.6, Hct 39.5 L, Plt Count 124 L 03/21/18 20:45: Sodium 140, Potassium 4.4, BUN 16, Creatinine 1.30, Glucose 97, Magnesium 2.2, Total Bilirubin 1.5 H, AST 45 H, ALT 51, Alkaline Phosphatase 112 Microbiology Data (last 24 hrs): 03/21/18 21:15 Nasopharnyx Influenza Type A Antigen Screen - Final 03/21/18 21:15 Nasopharnyx Influenza Type B Antigen Screen - Final Assessment & Plan - Problems (Diagnosis) (1) Shortness of breath Current Visit: Yes Status: Acute (2) Bronchitis Current Visit: Yes Status: Acute (3) Pulmonary edema Current Visit: Yes Status: Acute (4) Hypoxemia Current Visit: Yes Status: Acute (5) Failure of outpatient treatment Current Visit: Yes Status: Acute - Plan 1. Continue with IV antibiotics 2. Awaiting sputum culture 3. Will proceed with CT scan of the chest 4. Continue with nebs as needed 5. O2 per protocol 6. Antitussives 7. Repeat labs including CBC and renal function in a.m. 8. GI and DVT prophylaxis Discharge Plan: Home Plan to discharge in: Greater than 2 days - Advance Directives Does patient have a Living Will: No Does patient have a Durable POA for Healthcare: No - Code Status/Comfort Care Code Status Assessed: Yes Code Status: Full Code Critical Care: No Time Spent Managing PTS Care (In Minutes): 50
[2018-03-22] MEDS: ASPIRIN 81 MG CHEWABLE TABLET PO SCH ×2 (10:00→21:46)
[2018-03-22] MEDS ORDERED: CEFTRIAXONE/SWI 1gm 1 GM/10 ML SYR IVP ONE (11:00)
--- NOTE | 2018-03-22 12:06 | RAD REPORT ---
EXAM DESCRIPTION: CT - Thorax W/ Con - 03/22/2018 11:07 am CLINICAL HISTORY: Cough/bronchitis COMPARISON: March 21, 2018 chest x-ray TECHNIQUE: Computed axial tomography of the chest was obtained. 100 cc Isovue 300 was administered i ntravenously. All CT scans are performed using dose optimization technique as appropriate and may include automated exposure control or mA/KV adjustment according to patient size. FINDINGS: Mild interstitial lung opacities appear chronic. A lung consolidation is not noted. . No mediastinal or hilar lymphadenopathy is seen. A pleural effusion is not present. A pericardial effusion is not seen. 28 millimeter left adrenal nodule probably represents an adenoma IMPRESSION: Mild chronic interstitial lung opacities
[2018-03-22] MEDS ORDERED: INFLUENZA VACCINE (for 3y+) 0.5 ML DOSE IMVAC ONE (13:00)
[2018-03-22] MEDS: DOXAZOSIN 4 MG TAB PO SCH (13:11)
[2018-03-22] MEDS: AZITHROMYCIN IV 250 MG in NA CHLORIDE 0.9% 250 ML IVPB SCH (13:11)
[2018-03-22] MEDS: VALSARTAN 80 MG TAB PO SCH (13:12)
--- NOTE | 2018-03-22 14:32 | P.PN ---
Subjective Date of Service: 03/22/18 Chief Complaint: Pneumoniae Subjective: No new changes, No C/O voiced, Improving Pateint seen and examined at bedside. No family at bedside. Chart reviewed and case discussed with nursing staff Review of Systems 10-point ROS is otherwise unremarkable Physical Examination - Vital Signs Temperature: 98.0 F Blood Pressure: 164/81 Pulse: 86 Respirations: 20 Pulse Ox (%): 92 - Physical Exam General: Alert, In no apparent distress, Oriented x3 HEENT: Atraumatic, PERRLA, EOMI Neck: Supple, JVD not distended Respiratory: Dull Cardiovascular: Regular rate/rhythm, Normal S1 S2 Gastrointestinal: Normal bowel sounds, No tenderness Musculoskeletal: No tenderness Integumentary: No rashes Neurological: Normal speech, Normal tone, Normal affect Lymphatics: No axilla or inguinal lymphadenopathy - Studies Laboratory Data (last 24 hrs) 03/21/18 20:45: PT 12.4, INR 1.05 03/21/18 20:45: WBC 7.3, Hgb 13.6, Hct 39.5 L, Plt Count 124 L 03/21/18 20:45: Sodium 140, Potassium 4.4, BUN 16, Creatinine 1.30, Glucose 97, Magnesium 2.2, Total Bilirubin 1.5 H, AST 45 H, ALT 51, Alkaline Phosphatase 112 Microbiology Data (last 24 hrs): 03/21/18 21:15 Nasopharnyx Influenza Type A Antigen Screen - Final 03/21/18 21:15 Nasopharnyx Influenza Type B Antigen Screen - Final Assessment And Plan - Current Problems (Diagnosis) (1) Shortness of breath Current Visit: Yes Status: Acute (2) Hypoxemia Current Visit: Yes Status: Acute (3) Pulmonary edema Current Visit: Yes Status: Acute (4) Bronchitis Current Visit: Yes Status: Acute (5) Hypertension Current Visit: Yes Status: Chronic Qualifiers: Hypertension type: essential hypertension Qualified Code(s): I10 - Essential (primary) hypertension (6) BPH (benign prostatic hyperplasia) Current Visit: Yes Status: Chronic Qualifiers: Lower urinary tract symptom presence: symptoms absent Qualified Code(s): N40.0 - Benign prostatic hyperplasia without lower urinary tract symptoms - Plan Bronchitis (Acute) J40 Continue IV Azithromycin 250 mg/ Sodium (Chloride) 250 mls @ 250 mls/hr IVPB DAILY YESICA Continue breathing treatments Oxygen as needed Antitussives Failure of outpatient treatment (Acute) Z78.9 CT scan of chest negative for PE Hypoxemia (Acute) R09.02 O2 per protocol. Though patient off of oxygen at the time of my exam Pulmonary edema (Acute) J81.1 Continue IV lasix. patient's symptoms improved ECHO pending Shortness of breath (Acute) R06.02: Improved BPH (benign prostatic hyperplasia) (Chronic) N40.0 Stable, continue home medications Hypertension (Chronic) I10 Stable, continue home medications. DVT prophylaxis: Lovenox GI prophylaxis: Not needed Diet: heart healthy Disposition: Pending symptomatic improvement.
--- NOTE | 2018-03-22 16:09 | EKG ---
Test Date: 2018-03-21 Test Time: 21:06:02 Superintendent Nonselling: MG MEASUREMENT RESULTS: Intervals: Rate: 91 DE: 190 QRSD: 70 QT: 354 QTc: 435 Cameron: P: 27 DE: 190 QRS: 46 T: 64 INTERPRETIVE STATEMENTS: Sinus rhythm with sinus arrhythmia with occasional premature ventricular complexes Otherwise normal ECG No previous ECG available for comparison Electronically Signed On 03-22-18 16:08:44 COMPLIANCE MONITOR by Woody Monte
[2018-03-22] MEDS ORDERED: LYCOPEN PO SCH (21:00)
[2018-03-22] MEDS ORDERED: [UNRECOGNIZED DRUG - OTHER] PO SCH (21:00)
[2018-03-22] MEDS ORDERED: MULTIVIT MIN PO SCH (21:00)
[2018-03-22] MEDS ORDERED: LUTEIN PO SCH (21:00)
[2018-03-22] MEDS: POTASSIUM CL SA 10 MEQ TAB PO SCH (21:46)
[2018-03-22] MEDS: DUTASTERIDE 0.5 MG GEL CAP PO SCH (21:46)
[2018-03-22] MEDS: MULTIVIT W/ MINERAL TAB PO SCH (21:46)
[2018-03-22] MEDS: ATORVASTATIN 10 MG TAB PO SCH (21:46)
[2018-03-23] MEDS: ALBUTEROL 2.5 MG/3 ML NEB SOL NEB PRN ×3 (07:39→19:20)
[2018-03-23] MEDS: IPRATROPIUM BROM 0.5MG/2.5ML NEB PRN ×3 (07:39→19:20)
[2018-03-23 08:28] LABS: Potassium 4.2 mmol/L (3.5-5.1)
[2018-03-23] MEDS ORDERED: DOXAZOSIN 2 MG TAB ONE (08:38)
[2018-03-23] MEDS: ENOXAPARIN 40 MG/0.4 ML SQ SCH (08:50)
[2018-03-23] MEDS: VALSARTAN 80 MG TAB PO SCH (08:51)
[2018-03-23] MEDS: ASPIRIN 81 MG CHEWABLE TABLET PO SCH ×2 (08:52→20:49)
[2018-03-23] MEDS: FUROSEMIDE 40 MG/4 ML VIAL IV SCH (08:52)
[2018-03-23] MEDS: CLOPIDOGREL 75 MG TABLET PO SCH (08:53)
[2018-03-23] MEDS: AZITHROMYCIN IV 250 MG in NA CHLORIDE 0.9% 250 ML IVPB SCH (08:54)
[2018-03-23] MEDS: DOXAZOSIN 4 MG TAB PO SCH (08:54)
[2018-03-23] MEDS ORDERED: OLMESARTAN MEDOXOMIL PO SCH (09:00)
--- NOTE | 2018-03-23 11:27 | P.PN ---
Subjective Date of Service: 03/23/18 Chief Complaint: Pneumoniae Subjective: No C/O voiced, Improving Patient seen and examined at bedside. No family at bedside. Chart reviewed and case discussed with nursing staff Report improved breathing. Still having cough Review of Systems 10-point ROS is otherwise unremarkable Physical Examination - Vital Signs Temperature: 97.2 F Blood Pressure: 154/73 Pulse: 94 Respirations: 20 Pulse Ox (%): 90 - Physical Exam General: Alert, In no apparent distress, Oriented x3 HEENT: Atraumatic, PERRLA, EOMI Neck: Supple, JVD not distended Respiratory: Dull, Expiratory wheezes Cardiovascular: Regular rate/rhythm, Normal S1 S2 Gastrointestinal: Normal bowel sounds, No tenderness Musculoskeletal: No tenderness Integumentary: No rashes Neurological: Normal speech, Normal tone, Normal affect Lymphatics: No axilla or inguinal lymphadenopathy Assessment And Plan - Current Problems (Diagnosis) (1) Shortness of breath Current Visit: Yes Status: Acute (2) Hypoxemia Current Visit: Yes Status: Acute (3) Pulmonary edema Current Visit: Yes Status: Acute (4) Bronchitis Current Visit: Yes Status: Acute (5) Hypertension Current Visit: Yes Status: Chronic Qualifiers: Hypertension type: essential hypertension Qualified Code(s): I10 - Essential (primary) hypertension (6) BPH (benign prostatic hyperplasia) Current Visit: Yes Status: Chronic Qualifiers: Lower urinary tract symptom presence: symptoms absent Qualified Code(s): N40.0 - Benign prostatic hyperplasia without lower urinary tract symptoms - Plan Bronchitis (Acute) J40 Continue IV Azithromycin 250 mg/ Sodium (Chloride) 250 mls @ 250 mls/hr IVPB DAILY YESICA Continue breathing treatments Oxygen as needed Antitussives Failure of outpatient treatment (Acute) Z78.9 CT scan of chest negative for PE Hypoxemia (Acute) R09.02 O2 per protocol. Though patient off of oxygen at the time of my exam Pulmonary edema (Acute) J81.1 Continue IV lasix. patient's symptoms improved ECHO pending Shortness of breath (Acute) R06.02: Improved BPH (benign prostatic hyperplasia) (Chronic) N40.0 Stable, continue home medications Hypertension (Chronic) I10 Stable, continue home medications. DVT prophylaxis: Lovenox GI prophylaxis: Not needed Diet: heart healthy Disposition: Pending symptomatic improvement. Possible discharge home tomorrow Discharge Plan: Home Plan to discharge in: 24 Hours Physician Review: Patient Assessed, Agree with Above Assessment and Plan Time Spent Managing PTS Care (In Minutes): 35
[2018-03-23] MEDS: PHENOL 1.4% ORAL SPRAY 180ML MM PRN ×2 (17:16→20:55)
[2018-03-23] MEDS: BENZONATATE 100 MG CAP PO PRN (17:16)
[2018-03-23] MEDS: DUTASTERIDE 0.5 MG GEL CAP PO SCH (20:49)
[2018-03-23] MEDS: ATORVASTATIN 10 MG TAB PO SCH (20:49)
[2018-03-23] MEDS: POTASSIUM CL SA 10 MEQ TAB PO SCH (20:49)
[2018-03-23] MEDS: MULTIVIT W/ MINERAL TAB PO SCH (20:49)
[2018-03-24] MEDS: BENZONATATE 100 MG CAP PO PRN ×2 (04:10→10:20)
[2018-03-24] MEDS: PHENOL 1.4% ORAL SPRAY 180ML MM PRN ×2 (04:12→10:20)
[2018-03-24 04:29] VITALS: BMI 41.3
[2018-03-24] MEDS: VALSARTAN 80 MG TAB PO SCH (08:55)
[2018-03-24] MEDS: ASPIRIN 81 MG CHEWABLE TABLET PO SCH (08:56)
[2018-03-24] MEDS: DOXAZOSIN 4 MG TAB PO SCH (08:57)
[2018-03-24] MEDS: ENOXAPARIN 40 MG/0.4 ML SQ SCH (08:58)
[2018-03-24] MEDS: FUROSEMIDE 40 MG/4 ML VIAL IV SCH (08:58)
[2018-03-24] MEDS: CLOPIDOGREL 75 MG TABLET PO SCH (08:59)
[2018-03-24] MEDS: AZITHROMYCIN IV 250 MG in NA CHLORIDE 0.9% 250 ML IVPB SCH (08:59)
[2018-03-24 11:13] VITALS: O2SAT 94
[2018-03-24 14:27] VITALS: BP 123/62; TEMP 97.8
--- NOTE | 2018-03-24 14:31 | P.DS ---
Admission Date: 03/21/18 Discharge Date: 03/24/18 Disposition: ROUTINE DISCHARGE Discharge Condition: GOOD Reason for Admission: Pneumoniae - Problems (1) Shortness of breath Onset Date: 03/23/18 Status: Acute (2) Hypoxemia Onset Date: 03/23/18 Status: Acute (3) Pulmonary edema Onset Date: 03/23/18 Status: Acute (4) Bronchitis Onset Date: 03/23/18 Status: Acute (5) Hypertension Onset Date: 03/23/18 Status: Chronic Qualifiers: Hypertension type: essential hypertension Qualified Code(s): I10 - Essential (primary) hypertension (6) BPH (benign prostatic hyperplasia) Onset Date: 03/23/18 Status: Chronic Qualifiers: Lower urinary tract symptom presence: symptoms absent Qualified Code(s): N40.0 - Benign prostatic hyperplasia without lower urinary tract symptoms Brief History of Present Illness: Patient is a 67-year-old gentleman who came to the hospital after being treated for a bronchitis. Patient has been seen about a week ago at an urgent care. He was not given antibiotics. He was given inhalers and cough medication. However, he was not feeling any better. He came into the emergency room and his workup revealed that he had perihilar infiltrates or edema. His BMP was not significantly elevated however. He does have a significant cough or it appears that he may have had exposure to pertussis. Decision was made to admit the patient to the hospital for further evaluation. Hospital Course: Bronchitis (Acute) J40 He was started on IV Azithromycin 250 mg/ Sodium (Chloride) 250 mls @ 250 mls/ hr IVPB DAILY YESICA, breathing treatments and Oxygen as needed. Antitussives were given to help with this cough. His symptoms improved throughout the stay on these interventions. He was discharged home on oral azithromycin, tessalon perles and prednisone. Failure of outpatient treatment (Acute) Z78.9 CT scan of chest negative for PE Hypoxemia (Acute) R09.02 O2 per protocol. Patient off of oxygen Pulmonary edema (Acute) J81.1 Continue IV lasix. patient's symptoms improved ECHO pending, unable to be done at this visit. Patient to follow up with cardiology on outpatient basis. Shortness of breath (Acute) R06.02: Resolved BPH (benign prostatic hyperplasia) (Chronic) N40.0 Stable, continue home medications Hypertension (Chronic) I10 Stable, continue home medications. Vital Signs/Physical Exam: Temp Pulse Resp BP Pulse Ox 97.8 F 80 18 123/62 94 03/24/18 12:00 03/24/18 12:00 03/24/18 12:00 03/24/18 12:00 03/24/18 12:00 General: Alert, In no apparent distress, Oriented x3 HEENT: Atraumatic, PERRLA, EOMI Neck: Supple, JVD not distended Respiratory: Clear to auscultation bilaterally, Normal air movement Cardiovascular: Regular rate/rhythm, Normal S1 S2 Gastrointestinal: Normal bowel sounds, No tenderness Musculoskeletal: No tenderness Integumentary: No rashes Neurological: Normal speech, Normal tone, Normal affect Lymphatics: No axilla or inguinal lymphadenopathy Laboratory Data at Discharge: WBC 7.7 K/uL (4.3-10.9) 03/22/18 05:05 Hgb 13.0 g/dL (13.6-17.9) L 03/22/18 05:05 Hct 37.6 % (39.6-49.0) L 03/22/18 05:05 Plt Count 121 K/uL (152-406) L 03/22/18 05:05 PT 12.4 SECONDS (9.5-12.5) 03/21/18 20:45 INR 1.05 03/21/18 20:45 Sodium 140 mmol/L (136-145) 03/23/18 07:59 Potassium 4.2 mmol/L (3.5-5.1) 03/23/18 07:59 BUN 18 mg/dL (7-18) 03/23/18 07:59 Creatinine 1.09 mg/dL (0.55-1.3) 03/23/18 07:59 Glucose 111 mg/dL (74-106) H 03/23/18 07:59 Phosphorus 3.1 mg/dL (2.5-4.9) 03/22/18 05:05 Magnesium 2.2 mg/dL (1.8-2.4) 03/22/18 05:05 Total Bilirubin 1.3 mg/dL (0.2-1.0) H 03/22/18 05:05 AST 29 U/L (15-37) 03/22/18 05:05 ALT 47 U/L (12-78) 03/22/18 05:05 Alkaline Phosphatase 102 U/L (45-117) 03/22/18 05:05 Home Medications: Aspirin 1 tab PO BID 03/22/18 Atorvastatin Calcium 1 tab PO BEDTIME 03/22/18 Doxazosin [Cardura*] 8 mg PO DAILY 03/22/18 Dutasteride [Avodart*] 1 tab PO BEDTIME 03/22/18 Furosemide [Lasix*] 1 tab PO BID 03/22/18 Multivit-Min/FA/Lycopen/Lutein [Centrum Silver Men Tablet] 1 tab PO BEDTIME Olmesartan Medoxomil [Benicar] 1 tab PO DAILY 03/22/18 Potassium Oral Tab [Klor-Con 10 mEq Tab*] 1 tab PO BEDTIME 03/22/18 Azithromycin Tab [Zithromax*] 250 mg PO DAILY #5 tab 03/24/18 Benzonatate [Tessalon Perle*] 100 mg PO TID PRN #15 cap 03/24/18 Methylprednisolone [Medrol dosepack] 4 mg PO DIRECTED #1 rebekah 03/24/18 Phenol/Glycerin [Chloraseptic Max [place]] 30 ml MM Q4HP PRN #1 spray 03/24/18 New Medications: Phenol/Glycerin [Chloraseptic Max [place]] 30 ml MM Q4HP PRN #1 spray PRN Reason: Cough Azithromycin Tab [Zithromax*] 250 mg PO DAILY #5 tab Benzonatate [Tessalon Perle*] 100 mg PO TID PRN #15 cap PRN Reason: Cough Methylprednisolone [Medrol dosepack] 4 mg PO DIRECTED #1 rebekah Patient Discharge Instructions: Please follow up with the primary care physician in 1 week. New medications: Azithromycin, antibiotic for 5 days. Medrol Dosepak, steroids. Tessalon Perles 100 mg 3 times a day as needed for cough. Chloraseptic spray as needed for sore throat. Please return to the ER for worsening symptoms Diet: AHA Activity: Ad valeriano Physician Review: Patient Assessed, Agree with Above Assessment and Plan Time spent managing pt's care (in minutes): 55
== END 2018-03-24 13:50 | disposition home or self-care (01) | DRG 202 ==
LOC: ER 19:16 → ERHOLD 22:05 → 2ND 23:50
PROVIDERS: ADMIT Hospitalist; ATTEND Family Medicine
DX: J20.9 Acute bronchitis, unspecified (principal); J81.0 Acute pulmonary edema; R09.02 Hypoxemia; I10 Essential (primary) hypertension; N40.0 Benign prostatic hyperplasia without lower urinary tract symptoms; Z96.643 Presence of artificial hip joint, bilateral
CPT/HCPCS: 36415; 71045; 71260; 80048; 80053; 80076; 81003; 81015; 83735; 83880; 84100; 84145; 84484; 85025; 85610; 87040; 87070; 87205; 87804; 93005; 94640; 96372; 99285; J0456; J0696; J1650; J1940; J2930; J7030; Q9967